=== PATIENT | female | born 1950 | race Caucasian/White ===

== ENCOUNTER 2017-09-07 19:38 | Emergency (ER) | payer BC, OTHER ==
[2017-09-07 19:47] VITALS: BP 124/58; PULSE 69; TEMP 98.1; BMI 21.1
--- NOTE | 2017-09-07 19:48 | PDOC ---
History of Present Illness - General History Source: Patient Exam Limitations: No Limitations - History of Present Illness Initial Comments: 09/07/17 20:33 The patient is a 67 year old female, with no significant past medical history, who presents to the emergency department with, left ankle pain. As per patient, 6 hours ago she was rock climbing with her family when she was coming down and felt her left ankle twist. The patient ambulated post injury. Approximately 3 hours ago, she reports an onset of worsening pain to the left ankle. She denies any recent falls, head, or neck injuries. She denies recent fevers, chills, headache or dizziness. She denies recent nausea, vomit, diarrhea or constipation. She denies recent dysuria, frequency, urgency or hematuria. She denies recent chest pain or shortness of breath. Allergies: IV contrast. Past surgical history: None reported. Social history: Nonsmoker. Denies EtOH use and recreational drug use. <Martell Tee - Last Filed: 09/07/17 20:35> <Carley Nance - Last Filed: 09/08/17 05:06> - General Chief Complaint: Injury Stated Complaint: ROCKCLIMBING INJURY TO LEFT ANKLE Time Seen by Provider: 09/07/17 19:46 Past History <Martell Tee - Last Filed: 09/07/17 20:35> - Immunization History Td Vaccination: (UNKNOWN) - Suicide/Smoking/Psychosocial Hx Smoking Status: No Smoking History: Unknown if ever smoked Number of Cigarettes Smoked Daily: 0 <Carley Nance - Last Filed: 09/08/17 05:06> - Past Medical History Allergies/Adverse Reactions: Allergies Allergy/AdvReac Type Severity Reaction Status Date / Time iv contrast Allergy Mild throat Uncoded 09/07/17 19:40 itching and swelling Home Medications: Ambulatory Orders Calcium Carb/Vitamin D3/Vit K1 [Viactiv Soft Chew Tablet] 1 each PO BID Cholecalciferol (Vitamin D3) [Vitamin D3] 1,000 unit PO DAILY tablet 04/28/14 Review of Systems - Review of Systems Able to Perform ROS?: Yes Comments:: 09/07/17 20:34 CONSTITUTIONAL: Absent: fever, no chills, no fatigue EYES: Absent: visual changes ENT: Absent: ear pain, no sore throat CARDIOVASCULAR: Absent: chest pain, no palpitations RESPIRATORY: Absent: cough, no SOB GI: Absent: abdominal pain, no nausea, no vomiting, no constipation, no diarrhea GENITOURINARY: Absent: dysuria, no frequency, no hematuria MUSKULOSKELETAL: Present: Left ankle pain Absent: back pain, no arthralgia SKIN: Absent: rash NEURO: Absent: headache <Martell Tee - Last Filed: 09/07/17 20:35> *Physical Exam - Vital Signs Last Vital Signs Temp Pulse Resp BP Pulse Ox 98.1 F 69 18 124/58 100 09/07/17 19:42 09/07/17 19:42 09/07/17 19:42 09/07/17 19:42 09/07/17 19:42 - Physical Exam Comments: 09/07/17 20:34 GENERAL: The patient is awake, alert, and fully oriented, in no acute distress. HEAD: Normal with no signs of trauma. EYES: Pupils equal, round and reactive to light, extraocular movements intact, sclera anicteric, conjunctiva clear with no pallor. ENT: Ears normal, nares patent, oropharynx clear without exudates. Moist mucous membranes. NECK: Normal range of motion, supple without lymphadenopathy, JVD, or masses. LUNGS: Breath sounds equal, clear to auscultation bilaterally. No wheeze/ crackles. HEART: Regular rate and rhythm, normal S1 and S2 without murmur or rub. ABDOMEN: Soft/nontender/nondistended. BS wnl. No guarding or rebound. No palpable masses. No hepatosplenomegaly. +EXTREMITIES: Moderate edema to the lateral malleolus of the left ankle with tenderness distal to the malleolus. No deformity or ecchymosis. No ligamentous instability. Distal region no edematous or tenderness with palpation. DP palpable. No clubbing or cyanosis. No cords or erythema. NEUROLOGICAL: Cranial nerves II through XII grossly intact. Normal speech, normal gait. PSYCH: Normal mood, normal affect. SKIN: Warm, Dry, normal turgor, no rashes or lesions noted. <Martell Tee - Last Filed: 09/07/17 20:35> Progress Note - Progress Note Progress Note: Documentation has been prepared under my direction and personally reviewed by me in its entirety. I attest that this documented accurately reflects all work, treatment, procedures and medical decision making performed by me. <Carley Nance - Last Filed: 09/08/17 05:06> Medical Decision Making - Medical Decision Making As noted above, this 67-year-old woman presents with history of turning her left ankle as she was descending a hill while rock climbing today. Although she is able to weight-bear for some time after the injury, the pain has worsened in the last few hours. No previous history of injury to this lower leg. Exam as noted Left ankle x-ray performed in preliminary interpretation by me: No evidence of fracture or dislocation. Clinical presentation most consistent with left ankle sprain. Evan wrap and stirrup splint applied. Patient will use these during the day for the next 5-7 days. She has be given crutches for ambulation for the next 2-3 days and crutch walking instruction given. She will follow-up with orthopedics (Dr. Trav jesus) if she has persistent pain/swelling in the ankle. <Carley Nance - Last Filed: 09/08/17 05:06> *DC/Admit/Observation/Transfer - Attestations Scribe Attestion: 09/07/17 20:34 Documentation prepared by Martell Tee, acting as biomedical equipment technician for Carley Nance MD. <Martell Tee - Last Filed: 09/07/17 20:35> <Carley Nance - Last Filed: 09/08/17 05:06> Diagnosis at time of Disposition: Left ankle sprain Qualifiers: Encounter type: initial encounter Involved ligament of ankle: posterior talofibular ligament Qualified Code(s): S93.492A - Sprain of other ligament of left ankle, initial encounter - Discharge Dispostion Disposition: HOME Condition at time of disposition: Stable - Referrals Referrals: Kayden Ravi MD [Staff Physician] - 1 week - Patient Instructions Printed Discharge Instructions: Ankle Sprain Additional Instructions: Ice/elevation of left ankle for the next 2 days Evan wrap/ankle splint when up and around for the next week Crutches for ambulation for the next 2-3 days Naproxen/ibuprofen/Tylenol as needed for pain Follow-up with orthopedic group(Trav) if you have persistent pain/swelling
== END 2017-09-07 20:40 | disposition home or self-care (01) ==
LOC: FER 19:38
PROC: 2W3RX1Z Immobilization of Left Lower Leg using Splint (ICD-10-PCS; principal; 2017-09-07)
DX: S93.492A Sprain of other ligament of left ankle, initial encounter (principal); X50.0XXA Overexertion from strenuous movement or load, initial encounter; Y93.31 Activity, mountain climbing, rock climbing and wall climbing; Y92.9 Unspecified place or not applicable
CPT/HCPCS: 73610-TC-LT-FY; 99281-25

== ENCOUNTER 2023-09-07 08:58 | Emergency (ER) | payer OTHER ==
[2023-09-07 09:13] VITALS: BP 115/71; PULSE 70; RESP 18; TEMP 97.4; BMI 20.9
== END 2023-09-07 09:36 | disposition home or self-care (01) ==
LOC: FER 08:58
DX: J31.0 Chronic rhinitis (principal); J34.89 Other specified disorders of nose and nasal sinuses
CPT/HCPCS: 99282-25